=== PATIENT | female | born 2000 | race Caucasian/White ===

== ENCOUNTER 2021-01-18 12:50 | Emergency (ER) | payer OTHER, SELFPAY ==
[2021-01-18 13:08] VITALS: BP 146/87; PULSE 101; RESP 12; TEMP 36.7; O2SAT 100
--- NOTE | 2021-01-18 13:35 | ED.WOUNDLAC ---
HPI - Wound/Laceration General Chief Complaint: Wound/Laceration Stated Complaint: finger laceration Time Seen by Provider: 01/18/21 13:35 Source: patient and RN notes reviewed Mode of arrival: ambulatory Limitations: no limitations History of Present Illness HPI narrative: 20-year-old female presents concern for laceration to the second digit of her left hand that occurred earlier today when she was slicing a banana. Reports the wound continued to bleed after 90 minutes so she came in to be evaluated. She reports she is up-to-date on her vaccinations. She denies decrease in station, strength, range of motion in the digit. Denies any surrounding redness, purulent discharge. Extremity Location: Left: hand Related Data Home Medications Medication Instructions Recorded Confirmed No Home Medications 01/18/21 01/18/21 Allergies Allergy/AdvReac Type Severity Reaction Status Date / Time No Known Allergies Allergy Unverified 01/18/21 13:08 Review of Systems Review of Systems: Narrative: CONSTITUTIONAL: Denies malaise, chills, sweats, or fever. SKIN: Reports laceration to the second digit of the left hand MUSCULOSKELETAL: Denies musculoskeletal pain NEUROLOGIC: Denies numbness, weakness. All systems reviewed & are unremarkable except as noted in HPI and below PMFSH Comments At time of signature, agree with nursing past medical, surgical, social and family history. There is no relevant family history pertinent to the presenting complaint Exam Narrative: Exam Narrative: GENERAL: Well-appearing, well-nourished, and in no acute distress. HEAD: Normocephalic EYES: PERRLA, conjunctivae clear NECK: Supple. CHEST: Speaks in full sentences. No respiratory distress. HEART: Regular rate and rhythm. Normal and equal peripheral pulses. EXTREMITIES: First digit of left hand has normal strength and sensation. 5/5 strength with digit flexion, extension. Range of motion normal. No cyanosis or edema noted. No tenderness.Normal digital cascade with flexion of fingers, median, ulnar and radial nerve intact. Normal sensation of each side of finger. Good capillary refill and radial pulse. Distal capillary refill less than 3 seconds. SKIN: Warn, dry, intact, pink. 1.5 cm laceration into the subcutaneous tissue noted to the lateral aspect of the second digit of the left hand, wound well approximated, minor bleeding noted, no surrounding erythema, induration noted. NEURO: Alert and oriented x3. PSYCH: Normal mood and affect Course Course Emergency Course: Patient is aware of diagnosis, understands and agrees to treatment plan. Anticipatory guidance given. Patient agrees to follow-up as directed and is aware of reasons to seek care at the emergency department. Portions of this record may have been created with voice recognition software Vital Signs Vital signs: Vital Signs Temperature 98.1 F 01/18/21 13:08 Pulse Rate 101 H 01/18/21 13:08 Respiratory Rate 12 01/18/21 13:08 Blood Pressure 146/87 H 01/18/21 13:08 Pulse Oximetry 100 01/18/21 13:08 Temperature 98.1 F 01/18/21 13:08 Pulse Rate 101 H 01/18/21 13:08 Respiratory Rate 12 01/18/21 13:08 Blood Pressure 146/87 H 01/18/21 13:08 Pulse Oximetry 100 01/18/21 13:08 Reviewed. Procedures Laceration Laceration 1: Date: 01/18/21 Time: 13:40 Site: upper extremity Side (If applicable): left Size (cm): 1.5 Description: linear Depth: simple, single layer Pre-repair: wound explored and irrigated ====== Skin Level ====== Skin layer closed with: dermabond ====== Subcutaneous Layer ====== ====== Muscle Layer ====== ====== Tendon Layer ====== MDM - Wound/Laceration MDM Narrative Medical decision making narrative: Exam findings show no acute concerns or changes; patient is non-toxic appearing and is in no distress. Patient is appropriate for outpatient treatment and follow-up. Di
== END 2021-01-18 13:54 | disposition home or self-care (01) ==
PROVIDERS: Emergency Provider Nurse Practitioner; PCP Pediatrics
DX: S61.211A Laceration without foreign body of left index finger without damage to nail, initial encounter (principal); W26.9XXA Contact with unspecified sharp object(s), initial encounter
CPT/HCPCS: 12001; 99202; G0463

== ENCOUNTER 2024-09-26 00:12 | Day surgery (SDC) | payer OTHER, SELFPAY ==
[2024-09-17 11:19] VITALS: BMI 25.6
--- NOTE | 2024-09-17 11:25 | PC.NURSE ---
Report to the Outpatient Waiting Room, entrance under the green pavilion located off [facility], at time _0700_ on date _[id number]_. Planned Procedure Time: _0900_.? Time changes happen often and if your time is changed the preop area will call you the afternoon before. - You and your visitor will be asked to self-screen and do not enter if you have any COVID symptoms. Please call surgeon if you need to reschedule. - A mask is optional within the hospital at this time. Patients may have clear liquids (water, carbonated beverages, clear teas, apple juice) until 3 hours prior to surgery with a maximum of 20 ounces. - No food from midnight until time of surgery and no smoking, or chewing tobacco (or any form of nicotine). No chewing gum, candy or mints. Take only the following medications with a SIP of water on the morning of surgery: ___None__ DO NOT STOP ANY OF YOUR OTHER PRESCRIPTION MEDICATIONS PRIOR TO SURGERY EXCEPT THE FOLLOWING Hold all vitamins and supplements for 3 days per anesthesiologist. Medications to discontinue per physician Date to take last dose Please no make-up, nail pakistani, hairspray, perfume, deodorant, or body powder the day of surgery.? No jewelry (including any body piercings) or valuables the day of surgery, leave them at home.? Please take a shower or bath the night before, or the morning of, surgery with an antibacterial soap.? Wear comfortable, loose fitting clothing.? - Jewelry must be removed prior to entering the operating room.? Rings and piercings that are not removed may be cut off. - The hospital will not accept responsibility for valuables.? - Please leave all valuables, including medications, at home the day of surgery. If you are going home after surgery, a licensed driver manager must drive you home.? - NO public transportation without another adult if you receive anesthesia. - We recommend that an adult stay with you for 24 hours following discharge. - We also recommend that you do not drive, make important decision, drink alcoholic beverages, or take any drugs that were not prescribed by your health care provider for at least 24 hours after your discharge time. Follow any additional instructions given to you from your surgeon. Telephone instructions given to __Maria__and asked if any additional questions and then verbalized understanding. Patient advised to call surgeon office or pre surgery nurse liaison [phone] if any additional questions.
[2024-09-26] VITALS (10 sets, daily range): BP systolic 118–132; BP diastolic 53–79; PULSE 78–129; RESP 12–17; TEMP 36.1; O2SAT 97–100
--- OUTSIDE RECORDS SUMMARY | 2024-09-26 00:15 | XMS_ITS | Clinical Summary ---
Author Organization [facility] Address [address] [place] [id number] Care Team Providers Care Supervisor Quilting Name Role Phone Unavailable Primary Care Provider Unavailabl e Immunizations Name Administration Dates Next Due MODERNA COVID-19 (12+) MRNA, LNP-S, PF, 100 MCG/ 0.5 ML DOSE 08/05/2020,07/08/2020 Social History Tobacco Use Types Packs/Day Years Used Date Smoking Tobacco: Never Assessed Comments Unknown Sex and Gender Information Value Date Recorded Sex Assigned at Not on file Legal Sex Female 10:29 AM [employer] Gender Identity Not on file Sexual Orientation Not on file Plan of Treatment Health Maintenance Due Date Last Done Comments Cervical Cancer Screening Pap Smear (Age 21 to 29) Every 3 Years 2000 Cervical Cancer Screening 2000 Annual Physical 12/31/2003 Hepatitis C 2018 DTaP, Tdap and Td Vaccines (2 - Tdap) 12/31/2019 02/22/2006 COVID-19 Vaccine ( season) 2024 08/05/2020, 07/08/2020 Hepatitis B Vaccines Completed 01/08/2002, 05/02/2001, 03/07/2001 Pneumococcal Vaccine: Pediatrics (0 to 5 Years) and At-Risk Patients (6 to 64 Years) Completed 01/08/2002, 07/04/2001, 05/02/2001, Additional history exists HPV Vaccines Completed 01/12/2015, 05/26, 04/16/2014 Meningococcal Vaccine Completed 01/18/2017, 012 Meningococcal B Vaccine Completed 04/08/2019, 01/22 RSV Immunizations Under 20 Months Aged Out No longer eligible based on patient's age to complete this topic
[2024-09-26] MEDS: TRANEXAMIC ACID 1,000MG/ISO100 1,000 MG/100 ML BAG 200 MG IVPB (07:15)
[2024-09-26 07:20] LABS: BEDSIDEPREGUCG Negative (Negative)
[2024-09-26] MEDS: LACTATED RINGERS 1,000 ML 30 ML IV CONT ×2 (07:30→11:29)
--- NOTE | 2024-09-26 08:39 | WPDHPUPDATE1 ---
History and Physical Update Update Date/Time: 09/26/24 08:39 History and Physical has been reviewed, including an updated exam of the patient. There are NO changes in the patient's condition. Risks, benefits, and alternatives have been discussed and questions answered. Patient agrees to proceed with procedure.
--- NOTE | 2024-09-26 08:43 | W.PM.PROC2 ---
Procedure Note - Detailed Date of Procedure 09/26/24 Pre-op Diagnosis Macromastia Post-op Diagnosis Same Procedure Performed Bilateral reduction mammaplasty Surgeon Dannie Murray MD Anesthesia General Findings Inverted T Superior medial pedicle Tissue removed: Right: 644 grams Left: 734 grams Lipoaspirate: 450 cc Description of Procedure She is here today for bilateral breast reduction. Previously and again today the risks, benefits, alternatives were discussed in extensive detail. I wanted her to be very realistic about the risks involved as well as expectations. She understands we may not be able to get her as small as she desires based on her natural anatomy. We discussed the use of possible liposuction as an adjunct to her procedure. We discussed aftercare and what to monitor for. She understands we can never guarantee final breast size and there will always be asymmetry. I was very upfront and honest about the risks of sensation change and even nipple loss (). Made sure answered all of her questions to her satisfaction today and consent was obtained. She was marked in the preoperative holding area with their verification. The patient was taken to the operating room placed supine on the operating table. Anesthesia was provided by anesthesiology. She was prepped and draped in a standard sterile fashion. A surgical time-out was taken. Stab incisions were made and I tumesced with a tumescent solution. Suction lipectomy of lateral breast / chest wall was completed for contouring utilizing a 4mm basket cannula. This was based on preoperative planning, intraoperative observation, and a rolling pinch test which was in full agreement. I marked out the nipple-areolar complex at 42 mm. I then de-epithelialized the pedicle. The pedicle was well left well more than 2 cm in thickness. I then removed the inferior portion of the breast as well as the central keel to get shape based on preoperative planning. At this point copiously irrigated with saline solution and verified a strict hemostasis. I reapproximated the pillars using a 2-0 PDS. I tailor tacked the breast into place with davian. She was placed in a sitting position. I verified the nipple-areolar complex position based on preoperative markings, intraoperative measurements, and observation which were in full agreement. This nipple-areolar complex was marked at 42 mm in size. She had a slight asymmetry and this was adjusted with suction lipectomy utilizing a 4mm basket cannula to obtain symmetry. I then placed supine and de-epithelialized this. Nipple-areolar complex was inset with 3-0 Monocryl. I closed IMF deep with 1 strattafix. I closed the vertical incision with 3-0 Monocryl in the IMF with 3-0 stratafix. Then everything was closed using a running subcuticular 4-0 Monocryl and tissue glue. A dressing was placed followed by surgical bra. Patient was awoke and taken to PACU without difficulty. All instrument sponge counts were correct at the end of the case. Estimated Blood Loss 50 Drains No Packing No Pathology Yes (Bilateral breast tissue) Complications No immediate complications Condition Stable Disposition PACU
--- NOTE | 2024-09-26 08:47 | WPDANESEPPF ---
Anes - Initial Pre Proc Eval Procedure: Operation Date: 09/26/24 09:00 Proposed Procedures p Bilateral Breast Reduction - Dannie Murray MD Date/Time: 09/26/24 08:47 Surgeon: Dannie Murray MD Pre Op Diagnosis: Macromastia Patient Data Age: 23 Gender: F Height: 1.73 m Weight: 75.8 kg Last Vital Signs Temp 36.1 C L 09/26/24 07:10 Pulse 109 H 09/26/24 07:10 Resp 16 09/26/24 07:10 BP 132/79 09/26/24 07:10 Pulse Ox 100 09/26/24 07:10 O2 Del Method Room Air 09/26/24 07:10 Allergies Allergy/AdvReac Type Severity Reaction Status Date / Time No Known Allergies Allergy Unverified 09/26/24 07:17 Home Medications ?Medication ?Instructions ?Recorded ?Confirmed ?Type No Home Medications 01/18/21 09/17/24 History Laboratory Tests 09/26/24 09/26/24 07:03 07:18 POC Urine HCG, Qual Negative (Negative) Cotinine Pending Patient hx anesthesia problems: post op nausea/vomiting Family hx anesthesia problems: none Results Review: All pre-operative results and documents have been reviewed as part of the pre-operative evaluation. [facility] Social History Social History Smoking status: Never smoker Living arrangements: with family Spiritual care concerns: No Anes - Eval Final PreProcedure Day of Procedure 09/26/24 08:47 Patient weight: normal Heart: regular rate and rhythm Lungs: clear to auscultation Airway: Mallampati scale class 1 Neurological: alert and oriented Last oral intake: >/= 8 hours ASA classification: I Emergent: no Anesthetic plan: proceed Results Review: All pre-operative results and documents have been reviewed as part of the pre-operative evaluation. Patient stated PONV when she had her wisdom teeth removed. Will plan to order scopolamine patch for PONV prophylaxis. Informed Consent: The patient's anesthetic plan and its attendant risks and benefits were discussed with the patient/family/POA. Questions were solicited and answers provided to the satisfaction of the patient/family/POA.
--- NOTE | 2024-09-26 08:49 | P.PNAN_ITS ---
Anes - Initial Pre Proc Eval Procedure: Operation Date: 09/26/24 09:00 Proposed Procedures p Bilateral Breast Reduction - Dannie Murray MD Date/Time: 09/26/24 08:49 Surgeon: Dannie Murray MD Pre Op Diagnosis: Macromastia Patient Data Age: 23 Gender: F Height: 1.73 m Weight: 75.8 kg Last Vital Signs Temp 97.0 F L 09/26/24 07:10 Pulse 109 H 09/26/24 07:10 Resp 16 09/26/24 07:10 BP 132/79 09/26/24 07:10 Pulse Ox 100 09/26/24 07:10 O2 Del Method Room Air 09/26/24 07:10 Allergies Allergy/AdvReac Type Severity Reaction Status Date / Time No Known Allergies Allergy Unverified 09/26/24 07:17 Home Medications ?Medication ?Instructions ?Recorded ?Confirmed ?Type No Home Medications 01/18/21 09/17/24 History Laboratory Tests 09/26/24 09/26/24 07:03 07:18 POC Urine HCG, Qual Negative (Negative) Cotinine Pending Patient hx anesthesia problems: post op nausea/vomiting Family hx anesthesia problems: none Results Review: All pre-operative results and documents have been reviewed as part of the pre- operative evaluation. [facility] Social History Social History Smoking status: Never smoker Living arrangements: with family Spiritual care concerns: No Anes - Eval Final PreProcedure Day of Procedure 09/26/24 08:49 Patient weight: overweight Lungs: normal air movement Airway: Mallampati scale class II Neurological: alert and oriented ASA classification: I Emergent: no Anesthetic plan: proceed Anesthesia type and monitoring: general ETT and standard monitoring Results Review: All pre-operative results and documents have been reviewed as part of the pre- operative evaluation. Healthy 23 yo female. Informed Consent: The patient's anesthetic plan and its attendant risks and benefits were discussed with the patient/family/POA. Questions were solicited and answers provided to the satisfaction of the patient/family/POA.
[2024-09-26 08:55] LABS: Urine Cotinine NEGATIVE
[2024-09-26] MEDS: ceFAZolin 2 GM/D5W 50 ML 2 GM/50 ML BAG IVPB (08:55)
[2024-09-26] MEDS: SCOPOLAMINE 1 MG PATCH 1 PATCH TRANSDERM (09:18)
[2024-09-26] MEDS: LACTATED RINGERS IRRIG 1,000 ML, LIDOCAINE 1% LOCAL INJ 50 ML, EPINEPHrine HCL INJ 1 MG... INFILTRATE (09:22)
--- NOTE | 2024-09-26 10:52 | SUR.OPER ---
Bilateral Breast specimens sent to pathology fresh. TANYA, Yrn, transported specimens to pathology and handed both specimens to [facility] at 1052. Right breast tissue 644.1 grams Left breast tissue 734.0 grams
[2024-09-26] MEDS: ONDANSETRON INJ 4 MG/2 ML VIAL IV PUSH (11:43)
[2024-09-26] MEDS: diphenhydrAMINE HCl INJ 50 MG/ML VIAL 25 MG IV PUSH (12:04)
[2024-09-26] MEDS: fentaNYL CITRATE INJ (*CRX) 100 MCG/2 ML VIAL 25 MCG IV PUSH (12:35)
== END 2024-09-26 13:51 | disposition home or self-care (01) ==
PROVIDERS: Visit Provider Surgery Plastic and Reconstructive Surgery
PROC: 0HBV0ZZ Excision of Bilateral Breast, Open Approach (ICD-10-PCS; CPT 19318; principal; 2024-09-26 09:00)
DX: Z41.1 Encounter for cosmetic surgery (principal); N64.82 Hypoplasia of breast
CPT/HCPCS: 19318; 80307; 88305; A9270; J0171; J0690; J1100; J1200; J2003; J2250; J2405; J2704; J3010; J7120